=== PATIENT | male | born 1980 | race Caucasian/White ===

== ENCOUNTER 2018-02-25 18:16 | Emergency (ER) | payer OTHER ==
[2018-02-25 18:25] VITALS: BP 125/65; PULSE 63; TEMP 98; BMI 31.4
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
== END 2018-02-25 21:59 | disposition home or self-care (01) ==
LOC: JERFT 18:16
DX: S13.4XXA Sprain of ligaments of cervical spine, initial encounter (principal); M62.830 Muscle spasm of back; V43.62XA Car passenger injured in collision with other type car in traffic accident, initial encounter; Y92.488 Other paved roadways as the place of occurrence of the external cause; Y93.89 Activity, other specified; Y99.8 Other external cause status
CPT/HCPCS: 72050-TC-FY; 72100-TC-FY; 99281-25